=== PATIENT | male | born 1995 | race African-American/Black ===

== ENCOUNTER 2017-10-01 13:51 | Emergency (ER) | payer SELFPAY ==
[2017-10-01 14:04] VITALS: TEMP 97.9; BMI 27.5
--- NOTE | 2017-10-01 14:31 | PDOC ---
History of Present Illness <Vanessa Michaud - Last Filed: 10/01/17 17:01> - General History Source: Patient Exam Limitations: No Limitations - History of Present Illness Initial Comments: The patient is a 22 year old male with significant past medical history of asthma comes to the ED complaining of left anterior chest pain, stomach cramps and Heart palpitations since 11:15 pm last night. The patient reports hes been experiencing chest tightness for the past month without the manifestation of stomach pain or Heart palpitations. The patient reports been an active person in the past such as doing over 200 pushups daily but reports hes been relaxing lately and reports doing 20 push ups daily. The patient denies any recent unusual leg swellings. Family History: Patient denies any family history of heart problems. Occupation: Patient reports starting a new job recently. 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 Social History: Patient reports daily use of large amount of Marijuana. Denies any use of alcohol or use of cigarettes. 10/01/17 15:28 <Flavia Evangelista - Last Filed: 10/01/17 17:09> - General Chief Complaint: Chest Pain Stated Complaint: CHEST PAIN Time Seen by Provider: 10/01/17 14:07 Past History - Past Medical History Asthma: Yes COPD: No - Immunization History Immunization Up to Date: Yes - Suicide/Smoking/Psychosocial Hx Smoking History: Never smoked Have you smoked in the past 12 months: No Hx Alcohol Use: Yes (occasional) Drug/Substance Use Hx: No Substance Use Type: Marijuana <Vanessa Michaud - Last Filed: 10/01/17 17:01> <Flavia Evangelista - Last Filed: 10/01/17 17:09> - Past Medical History Allergies/Adverse Reactions: Allergies Allergy/AdvReac Type Severity Reaction Status Date / Time No Known Allergies Allergy Verified 10/01/17 13:55 Home Medications: Ambulatory Orders NK [No Known Home Medication] 10/01/17 Review of Systems - Review of Systems Able to Perform ROS?: Yes Comments:: CONSTITUTIONAL: Absent: fever, chills, diaphoresis, generalized weakness, malaise, loss of appetite HEENT: Absent: rhinorrhea, nasal congestion, throat pain, throat swelling, difficulty swallowing, mouth swelling, ear pain, eye pain, visual Changes CARDIOVASCULAR: (+) Chest Pain and Palpitation Absent: syncope, irregular heart rate, lightheadedness, dizziness, peripheral edema RESPIRATORY: Absent: cough, shortness of breath, dyspnea with exertion, orthopnea, wheezing, stridor, hemoptysis GASTROINTESTINAL: (+) Abdominal cramps Absent: abdominal pain, abdominal distension, nausea, vomiting, diarrhea, constipation, melena, hematochezia GENITOURINARY: Absent: dysuria, frequency, urgency, hesitancy, hematuria, flank pain, genital pain MUSCULOSKELETAL: Absent: myalgia, arthralgia, joint swelling SKIN: Absent: rash, itching, pallor HEMATOLOGIC/IMMUNOLOGIC: Absent: easy bleeding, easy bruising, lymphadenopathy, frequent infections ENDOCRINE: Absent: unexplained weight gain, unexplained weight loss, heat intolerance, cold intolerance NEUROLOGIC: Absent: headache, focal weakness or paresthesias, dizziness, unsteady gait, seizure, mental status changes, bladder or bowel incontinence PSYCHIATRIC: Absent: anxiety, depression, suicidal or homicidal ideation, hallucinations. 10/01/17 15:30 <Flavia Evangelista - Last Filed: 10/01/17 17:09> *Physical Exam - Vital Signs Last Vital Signs Temp Pulse Resp BP Pulse Ox 97.9 F 70 18 157/77 100 10/01/17 13:51 10/01/17 13:51 10/01/17 13:51 10/01/17 13:51 10/01/17 13:51 <Vanessa Michaud - Last Filed: 10/01/17 17:01> - Vital Signs Last Vital Signs Temp Pulse Resp BP Pulse Ox 97.9 F 70 18 157/77 100 10/01/17 13:51 10/01/17 13:51 10/01/17 13:51 10/01/17 13:51 10/01/17 13:51 - Physical Exam Comments: GENERAL: Well developed, well nourished. Awake and alert. No acute distress. HEENT: Normocephalic, atraumatic. PERRLA, EOMI. No conjunctival pallor. Sclera are non- icteric. Moist mucous membranes. Oropharynx is clear. NECK: Supple. Full ROM. No JVD. Carotid pulses 2+ and symmetric, without bruits. No thyromegaly. No lymphadenopathy. CARDIOVASCULAR: Regular rate and rhythm. No murmurs, rubs, or gallops. Distal pulses are 2+ and symmetric. PULMONARY: No evidence of respiratory distress. Lungs clear to auscultation bilaterally. No wheezing, rales or rhonchi. ABDOMINAL: Soft. Non-tender. Non-distended. No rebound or guarding. No organomegaly. Normoactive bowel sounds. MUSCULOSKELETAL Normal range of motion at all joints. No bony deformities or tenderness. No CVA tenderness. EXTREMITIES: (+) Tenderness to palpation in the mid-sternal area. No cyanosis. No clubbing. No edema. No calf tenderness. SKIN: Warm and dry. Normal capillary refill. No rashes. No jaundice. NEUROLOGICAL: Alert, awake, appropriate. Cranial nerves 2-12 intact. No deficits to light touch and temperature in face, upper extremities and lower extremities. No motor deficits in the in face, upper extremities and lower extremities. Normoreflexic in the upper and lower extremities. Normal speech. Toes are down- going bilaterally. Gait is normal without ataxia. PSYCHIATRIC: Cooperative. Good eye contact. Appropriate mood and affect. 10/01/17 15:52 <Flavia Evangelista - Last Filed: 10/01/17 17:09> ED Treatment Course - LABORATORY CBC & Chemistry Diagram: 10/01/17 15:00 10/01/17 15:00 <Vanessa Michaud - Last Filed: 10/01/17 17:01> - LABORATORY CBC & Chemistry Diagram: 10/01/17 15:00 10/01/17 15:00 <Flavia Evangelista - Last Filed: 10/01/17 17:09> Medical Decision Making - Critical Care Time Total Critical Care Time (minutes): 30 Critical Care Statement: The care of this patient involved high complexity decision making to prevent further life threatening deterioration of the patient 's condition and/or to evaluate & treat vital organ system(s) failure or risk of failure. - Medical Decision Making The patient was seen immediately upon arrival. EKG was ordered. The patient reports intermittent pressing in the chest, which has been on and off for the past few months. 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 The patient reports the daily use of large amounts of marijuana. Denies the use of any other drugs or alcohol. The patient reports the pain manifested shortly after eating dinner around 11:00 pm last night. The patient reports it felt like my heart was pounding out of the chest. The patient denies any dizziness, SOB or diaphoresis. 10/01/17 15:25 The patient was observed for every hour for the past 3 hours. The patient reports he is free of pain now. The patient was instructed to decrease the use of or even quit the use of marijuana by the physician. The patient reports he has insomnia leading him to continue to seek the use of Marijuana. 10/01/17 17:09 <Flavia Evangelista - Last Filed: 10/01/17 17:09> *DC/Admit/Observation/Transfer - Discharge Dispostion Admit: No <Vanessa iMchaud - Last Filed: 10/01/17 17:01> - Attestations Scribe Attestion: 10/01/17 15:52 Documentation prepared by Flavia Evangelista, acting as medical typist for Vanessa Michaud MD. <Flavia Evangelista - Last Filed: 10/01/17 17:09> Diagnosis at time of Disposition: Chest pain in adult - Discharge Dispostion Disposition: HOME Condition at time of disposition: Stable - Patient Instructions Printed Discharge Instructions: DI for Atypical Chest Pain Additional Instructions: Avoid any smoking. Follow up with your doctor or return to ER if more symptoms - Post Discharge Activity Forms/Work/School Notes: Back to Work
[2017-10-01 15:44] LABS: BASO % 1.5 % (0-2.0); EOS % 5.6 % (0-4.5); HEMATOCRIT 44.6 % (35.4-49); HEMOGLOBIN 15.4 GM/dl (11.7-16.9); LYMPH % 29.3 % (8-40); MCH 30.2 pg (25.7-33.7); MCHC 34.5 g/dl (32.0-35.9); MEAN CELL VOLUME 87.6 fl (80-96); MEAN PLT VOLUME 8.5 fl (7.5-11.1); MONO % 6.8 % (3.8-10.2); NEUT % 56.8 % (42.8-82.8); PLATELET COUNT 277 K/MM3 (134-434); RBC 5.09 M/mm3 (4.00-5.60); RDW 13.3 % (11.9-15.9)
[2017-10-01 15:50] LABS: ALBUMIN 4.4 g/dl (3.5-5.0); ALK PHOS 55 U/L (32-92); ANION GAP 6 (8-16); BILIRUBIN,TOTAL 1.4 mg/dl (0.2-1.0); BLOOD UREA NITROGEN 16 mg/dl (7-18); CALCIUM 9.4 mg/dl (8.4-10.2); CHLORIDE 103 mmol/L (98-107); CO2 24 mmol/L (22-28); CREATININE 1.1 mg/dl (0.6-1.3); GLUCOSE,RANDOM 88 mg/dl (74-106); POTASSIUM 4.3 mmol/L (3.5-5.1); SGOT/AST 21 U/L (10-42); SGPT/ALT 19 U/L (10-40); SODIUM 133 mmol/L (136-145); TOT PROT 7.4 g/dl (6.4-8.3)
[2017-10-01 17:35] VITALS: BP 140/70; PULSE 74
--- NOTE | 2017-10-02 15:57 | EKG ---
Test Reason : Blood Pressure : / mmHG Vent. Rate : 063 BPM Atrial Rate : 063 BPM P-R Int : 162 ms QRS Dur : 094 ms QT Int : 390 ms P-R-T Axes : 059 072 055 degrees QTc Int : 399 ms NORMAL SINUS RHYTHM WITH SINUS ARRHYTHMIA INCOMPLETE RIGHT BUNDLE BRANCH BLOCK BORDERLINE ECG NO PREVIOUS ECGS AVAILABLE Confirmed by DARIEN BARROW, MERCEDES ([id number]) on 10/02/2017 3:57:06 PM Referred By: NAGA DOMINGO Confirmed By:MERCEDES LEDEZMA MD
== END 2017-10-01 17:36 | disposition home or self-care (01) ==
LOC: FER 13:51
DX: R07.9 Chest pain, unspecified (principal)
CPT/HCPCS: 36415; 71046-TC-FY; 80053; 84484; 85025; 93005; 99282-25